=== PATIENT | female | born 1950 | race Caucasian/White ===

== ENCOUNTER 2016-11-02 08:54 | Day surgery (SDC) | payer OTHER ==
[~2016-11-02] VITALS: Ht 163.8 cm; Wt 57.5 kg
[~2016-11-02 08:54] MED LIST: THYR97.5 PO
[2016-11-02] MEDS ORDERED: CeFAZolin 1 GM/DEXTROSE 50 ML IV ONE ×2 (09:14→11:00)
[2016-11-02] MEDS ORDERED: FentaNYL CITRATE-PF 100 MCG/2 ML VIAL ONE (10:36)
[2016-11-02] MEDS ORDERED: MIDAZOLAM HCL 2 MG/2 ML VIAL ONE (10:36)
[2016-11-02] MEDS ORDERED: SODIUM CHLORIDE 0.9% 1,000 ML IV ONE (11:00)
[2016-11-02] MEDS ORDERED: LORazepam 2 MG/ML VIAL IVP PRN (11:00)
[2016-11-02] MEDS ORDERED: FentaNYL CITRATE-PF 100 MCG/2 ML VIAL IVP ONE (11:18)
[2016-11-02] MEDS ORDERED: MIDAZOLAM HCL 2 MG/2 ML VIAL IVP ONE (11:18)
[2016-11-02] MEDS ORDERED: SODIUM CHLORIDE 0.9% 1,000 ML IV SCH (12:07)
[2016-11-02] MEDS ORDERED: HYDROmorphone 2 MG/ML SYRINGE IVP PRN (12:15)
[2016-11-02] MEDS ORDERED: OxyCODONE HCL/ACETAMINOPHEN 5-325 MG TABLET PO PRN ×2 (12:15)
[2016-11-02] MEDS ORDERED: HYDROmorphone HCL 2 MG TABLET PO ONE (12:15)
[2016-11-02] MEDS ORDERED: HYDROmorphone HCL 2 MG TABLET ONE (12:20)
== END 2016-11-02 13:00 | disposition home or self-care (01) ==
LOC: SURGERY 08:54 → EDSTATUS 10:00 → SURGERY 13:00
PROVIDERS: ATTEND Radiology Diagnostic Radiology
DX: C50.911 Malignant neoplasm of unspecified site of right female breast (principal); E03.9 Hypothyroidism, unspecified; Z88.8 Allergy status to other drugs, medicaments and biological substances; Z90.49 Acquired absence of other specified parts of digestive tract; Z98.890 Other specified postprocedural states
CPT/HCPCS: 19105; 99152; 99153; C2618; J0690; J2250; J3010